=== PATIENT | male | born 1965 | race Caucasian/White ===

== ENCOUNTER 2017-05-08 11:35 | Outpatient (CLI) | payer OTHER ==
--- NOTE | 2017-05-08 12:06 | XRAY Report ---
TWO VIEW CHEST: 05/08/2017 COMPARISON: None. INDICATION: Right 6th rib pain and cough. TECHNIQUE: Two views. FINDINGS: Clear lungs. No pneumothorax or pleural effusion. Mediastinum unremarkable. No clear rib fracture. IMPRESSION: NO EVIDENCE OF ACUTE THORACIC PROCESS. TD: 05/08/2017 12:05 MTDD
--- NOTE | 2017-05-08 12:12 | XRAY Report ---
RIGHT RIBS: 05/08/2017 COMPARISON: None. INDICATION: Cough and right 6th rib pain. TECHNIQUE: Two views. FINDINGS: No displaced rib fracture. No pneumothorax. Mediastinum grossly unremarkable. IMPRESSION: NO EVIDENCE OF RIB FRACTURE. TD: 05/08/2017 12:11 [email or web address]
== END 2017-05-08 11:36 | disposition home or self-care (01) ==
LOC: DI 11:35
PROVIDERS: ATTEND Nurse Practitioner Family
DX: R05 Cough (principal); R07.81 Pleurodynia
CPT/HCPCS: 71046

== ENCOUNTER 2017-07-03 15:39 | Outpatient (CLI) | payer OTHER ==
--- NOTE | 2017-07-03 17:25 | XRAY Report ---
TWO VIEW CHEST: 07/03/2017 CLINICAL INDICATION: Congestion. COMPARISON: 05/08/2017 FINDINGS: Frontal and lateral views of the chest demonstrate a normal cardiac silhouette. The lungs are clear. No effusion or pneumothorax is present. IMPRESSION: NORMAL CHEST. TD: 07/03/2017 17:24
== END 2017-07-03 15:40 | disposition home or self-care (01) ==
LOC: DI 15:39
PROVIDERS: ATTEND Nurse Practitioner Family
DX: R09.89 Other specified symptoms and signs involving the circulatory and respiratory systems (principal); R06.02 Shortness of breath
CPT/HCPCS: 71046

== ENCOUNTER 2021-01-08 08:00 | Outpatient (CLI) | payer BC, OTHER | END 2021-01-08 23:59 | disposition home or self-care (01) | LOC: LAB.S 08:00 | PROVIDERS: ATTEND Physician Assistant | DX: H92.02 Otalgia, left ear (principal); J34.89 Other specified disorders of nose and nasal sinuses; R07.0 Pain in throat; Z20.822 Contact with and (suspected) exposure to COVID-19 | CPT/HCPCS: 87070 ==